=== PATIENT | female | born 1990 | race Hispanic/Latino ===

== ENCOUNTER 2018-04-30 14:37 | Emergency (ER) | payer MEDICAID, SELFPAY ==
[2018-04-30 15:23] LABS: #Eosinphils 0.1 thou/uL (0.0-0.7); #Lymphocytes 2.2 thou/uL (1.20-3.40); #Monocytes 0.5 thou/uL (0.11-0.59); #Neutrophils 5.7 thou/uL (1.40-6.50); %Basophils 0.5 % (0.0-1.0); %Eosinophils 1.5 % (0.0-10.0); %Lymphocytes 25.7 % (21.0-51.0); %Monocytes 5.9 % (0.0-10.0); %Neutrophils 66.3 % (42.0-75.0); Hemoglobin 11.5 g/dL (12.0-16.0); Mean Corpuscular HGB CONC 34.6 g/dL (32.0-36.0); Mean Corpuscular Hemoglobin 28.5 pg (27.0-31.0); Mean Corpuscular Volume 82.4 fL (78.0-98.0); Mean Platelet Volume 7.4 fL (7.4-10.4); Platelet Count 267 thou/uL (130-400); RBC Distribution Width 14.6 % (11.5-14.5); Red Blood Cell (RBC) Count 4.03 mill/uL (4.20-5.40); White Blood Cell (WBC) Count 8.6 thou/uL (4.8-10.8)
[2018-04-30 15:25] LABS: Bilirubin Negative (Negative); Blood, Urine Negative (Negative); Clarity CLEAR (Clear); Glucose, Urine (Dipstick) Negative (Negative); Leukocyte Trace (Negative); Nitrite Negative (Negative); Protein, Urine (Dipstick) Negative (Neg-Trace); Specific Gravity, Urine 1.006 (1.002-1.036); Urobilinogen 0.2 mg/dL (0.2-1.0); pH, Urine 5.5 (5.0-9.0)
[2018-04-30 15:27] LABS: Bacteria/HPF None Seen HPF (None Seen); Hyaline Casts/LPF 0-3 HYALINE CAST LPF (0-3 Hyaline); Pathc Cast-AUWi Flag 0.14 (0-2.49); RBC/HPF 0-3 HPF (0-3); Squamous Epithelial 0-3 HPF (0-3); WBC/HPF 0-3 HPF (0-3)
[2018-04-30] MEDS ORDERED: cefTRIAXone\\ROCEPHIN 250 MG VIAL ONE (17:09)
[2018-04-30] MEDS ORDERED: Azithromycin 250 MG TAB ONE (17:09)
[2018-04-30] MEDS ORDERED: Lidocaine 1% PF 5 ML VIAL ONE (17:09)
[2018-05-03 01:19] LABS: Chlamydia by PCR Not Detected (NotDetected); GC by PCR Not Detected (NotDetected)
== END 2018-04-30 18:34 | disposition home or self-care (01) ==
LOC: ERS 14:37
DX: O26.851 Spotting complicating pregnancy, first trimester (principal); O23.591 Infection of other part of genital tract in pregnancy, first trimester; O24.419 Gestational diabetes mellitus in pregnancy, unspecified control; Z3A.14 14 weeks gestation of pregnancy
CPT/HCPCS: 36415; 81003; 81015; 84702; 85025; 86900; 86901; 87480; 87491; 87510; 87591; 87660; 96372; J0696; J2001

== ENCOUNTER 2018-10-25 16:48 | Day surgery (SDC) | payer OTHER ==
--- NOTE | 2018-10-25 17:28 | PDOC.FPROB ---
FMR OB H&P: HPI - History of Present Illness Chief Complaint: Headache, LE edema History of Present Illness: 28 yo at 38.0w by 10.0w sono here with cc of headache, LE edema and shortness of breath since this morning. She states the edema seemed worse than yesterday this morning in her feet. She also wasn't feeling baby move as much this morning but is feeling her move a lot this afternoon. Headache started around 3pm and she has not tried anything for pain relief. Tolerating PO but feels a little nauseous at the moment. Denies VB, LOF, ctx. Denies vomiting or diarrhea. Primary Care Physician: Latasha Espinal MD, PGY-3 FMR OB H&P: Current - Care : 4 Para: 2011 Gestational age: 38.0 Due date: 11/08/2018 Dating Criteria: 10.0w sono Course/Complications: A1GDM - OB Labs Blood type: O RH: positive Antibody Screen: negative HIV: negative RPR: negative HepBsAg: negative Rubella: immune Gonorrhea: negative Chlamydia: negative Pap Smear: NILM 1 hour gtt: elevated 3 hour GTT: elevated GBS: negative - First Trimester Ultrasound First trimester: 10.0w - Anatomy Survey Anatomy survey: Female fetus Normal per MFM report FMR OB H&P: History - Past Medical History PMH: A1GDM GERD - OB History OB History: 1 SAB with D&C in [facility] - Surgical History Sx History: D&C - Social History Social History: Denies t/a/d FMR OB H&P: Medications - Current Home Medications: Medication Instructions Recorded Confirmed Type Vit No.130/Iron/Folic 1 each PO DAILY 06/12/16 06/12/16 History [ Tablet] Acetaminophen [Tylenol Extra 1,000 mg PO Q4H PRN #30 tab 06/15/16 Rx Strength] Ferrous Sulfate [Feosol] 325 mg PO BID-WM tab 06/15/16 Rx Allergies/Adverse Reactions: Allergies Allergy/AdvReac Type Severity Reaction Status Date / Time No Known Allergies Allergy Verified 06/12/16 17:59 FMR OB H&P: ROS - Review of Systems General: reports: fatigue. denies: fever/chills Eyes: denies: vision changes, scotomas ENT: denies: rhinorrhea, sore throat Cardiovascular: denies: chest pain, palpitation Respiratory: reports: shortness of breath. denies: cough Gastrointestinal: reports: nausea. denies: abdominal pain, vomiting Genitourinary (Female): denies: dysuria, hematuria, vaginal discharge Musculoskeletal: reports: swelling. denies: pain Neurologic: reports: headache. denies: numbness, syncope Integumentary: denies: rash, lesions FMR OB H&P: Vital Signs - Maternal Vital signs: pending FMR OB H&P: Physical Exam - Physical Exam General: NAD, awake, alert and oriented HEENT: MMM, conjunctiva clear Neck: supple, trachea midline Breast: symmetric, non-tender Heart: RRR, normal S1/S2 General: CTAB, no respiratory distress Abdomen: soft, gravid Musculoskeletal: pulses present, other (trace edema BL LE) Skin: capillary refill <2 seconds Lymphatic: no unusual bruising or bleeding Psychiatric: good judgement and insight, normal mood and affect - Pelvic Exam Vulva: normal hair distribution SVE: 0/th/high Presentation: vertex Estimated Weight: 7 lbs FMR OB H&P: A/P - Problem List (1) Gestational diabetes Current Visit: No Status: Acute Code(s): O24.419 - GESTATIONAL DIABETES MELLITUS IN , UNSP CONTROL Qualifiers: Gestational diabetes mellitus control: diet-controlled Comment: - Glucose 79 at most, always in the 70's (2) Term Current Visit: No Status: Acute Code(s): Z34.80 - [facility]NCOUN[facility] OF NORMAL , UNSP TRIMESTER Comment: - Vaginal delivery - Pt had no bleeding today. No BM yet. Disposition: 28 yo at 38.0w by 10.0w sono here with headache and LE edema 1. Headache - Initial BP WNL, will continue to monitor - Tylenol and PO hydration - Will discuss elective induction at 39w if not indicated sooner 2. Peripheral edema - BP WNL, monitor - Trace protein on UA at clinic yesterday 3. A1GDM - Well controlled on diet - Reports fasting 100 today and postprandial 120 - Continue 2 accuchecks daily - F/u early next week in clinic Will monitor BP and FHTs. Re-eval in 1 hour. Discussion: Date/Time: 10/25/18 5341 This H&P was discussed with Dr. Oliver who agrees with A/P
[2018-10-25] MEDS ORDERED: Acetaminophen 500 MG TAB PO SCH (17:45)
[2018-10-25 18:06] VITALS: BMI 25.6
== END 2018-10-25 19:26 | disposition home or self-care (01) ==
LOC: L&D/OP 16:48
PROVIDERS: ATTEND Obstetrics & Gynecology
DX: O99.89 Other specified diseases and conditions complicating pregnancy, childbirth and the puerperium (principal); R51 Headache; R60.0 Localized edema; R06.02 Shortness of breath; O24.410 Gestational diabetes mellitus in pregnancy, diet controlled; Z3A.38 38 weeks gestation of pregnancy
CPT/HCPCS: 81003; 99283

== ENCOUNTER 2018-10-29 11:50 | Inpatient (IN) | payer MEDICAID, OTHER, SELFPAY ==
[~2018-10-29 11:50] MED LIST: Bupivacaine 0.25% HCL 30 ML VIAL ONE
--- NOTE | 2018-10-29 12:03 | PDOC.FPROB ---
FMR OB H&P: HPI - History of Present Illness Chief Complaint: elevated BPs Indentification: History of Present Illness: 28 yo at 38.4 by 10.0wk pamella sent from clinic for elevated blood pressures. Per report she had two elevated BPs at 152/93 with repeat in 140s/ 90s. She was seen Sunday here for elevated BPs and headache. Headache resolved with tylenol, BPs were wnl and urine negative for protein. Today in clinic she a urine protein dipstick that was 2+. Today she denies JUARES, vision changes, chest pain, problems breathing. Does report worsening of lower extremity edema this past week. Endorses FM, denies CTX, VB/VD, LOF. Primary Care Physician: Lety FMR OB H&P: Current - Care : 4 Para: 2011 Gestational age: 38.4 Due date: 11/08/18 Dating Criteria: 10.0wksono - OB Labs Blood type: O RH: positive Antibody Screen: negative HIV: negative RPR: negative HepBsAg: negative Rubella: immune Quad screen: negative Gonorrhea: negative Chlamydia: negative Pap Smear: NILM 1 hour gtt: elevated 3 hour GTT: elevated GBS: negative - Anatomy Survey Anatomy survey: Normal fetus, no abnormalities noted FMR OB H&P: History - Past Medical History PMH: A1GDM GERD - OB History OB History: 1 SAB with D&C in [facility] 2 term SVDs - Surgical History Sx History: D&C for SAB - Social History Social History: denies t/e/d FMR OB H&P: Medications - Current Home Medications: Medication Instructions Recorded Confirmed Type Vit No.130/Iron/Folic 1 each PO DAILY 06/12/16 10/29/18 History [ Tablet] Acetaminophen [Tylenol Extra 1,000 mg PO Q4H PRN #30 tab 06/15/16 10/29/18 Rx Strength] Ranitidine HCl 150 mg PO DAILY 10/29/18 10/29/18 History Allergies/Adverse Reactions: Allergies Allergy/AdvReac Type Severity Reaction Status Date / Time No Known Allergies Allergy Verified 10/29/18 12:42 FMR OB H&P: ROS - Review of Systems General: denies: fever/chills, weight/appetite/sleep changes Eyes: denies: vision changes, double vision ENT: denies: nasal congestion, rhinorrhea Cardiovascular: reports: edema. denies: chest pain Respiratory: denies: cough, congestion, shortness of breath Gastrointestinal: reports: indigestion. denies: abdominal pain, nausea, vomiting Genitourinary (Female): denies: dysuria, hematuria, vaginal discharge, vaginal pain, vaginal bleeding, contractions, vaginal pressure Neurologic: denies: seizures, headache Endocrine: denies: polydipsia, polyuria FMR OB H&P: Vital Signs - Maternal Vital signs: BP <140/<90 - Heart Tones Baseline: 150 Variability: moderate Acceleration: present Deceleration: absent FMR OB H&P: Physical Exam - Physical Exam General: NAD, awake, alert and oriented HEENT: normocephalic and atraumatic, PERRLA, EOMI, MMM, conjunctiva clear Neck: supple Heart: RRR, normal S1/S2, no murmurs/rubs/gallops General: CTAB, no respiratory distress, good air movement Abdomen: soft, gravid, fundus(cm) Neurological: sensation to pain,touch and proprioception grossly normal, DTR +3 Psychiatric: intact recent and remote memory, good judgement and insight FMR OB H&P: A/P - Problem List (1) Elevated blood pressure affecting in third trimester, antepartum Current Visit: Yes Status: Acute Code(s): O16.3 - UNSPECIFIED MATERNAL HYPERTENSION, THIRD TRIMESTER (2) Gestational diabetes Current Visit: No Status: Acute Code(s): O24.419 - GESTATIONAL DIABETES MELLITUS IN , UNSP CONTROL Qualifiers: Gestational diabetes mellitus control: diet-controlled Comment: - Glucose 79 at most, always in the 70's (3) Term Current Visit: No Status: Acute Code(s): Z34.80 - ENCOUNTER FOR [facility] OF NORMAL , UNSP TRIMESTER Comment: - Vaginal delivery - Pt had no bleeding today. No BM yet. Disposition: Elevated BPs in clinic, concern for PreE -Clinic BPs 150/90s with 2+ urine dipstick -Thus far BPs have been within normal limits <140/<90 -Patient exam pertinent for 1+ BLE edema, brisk reflexes 3+. In light of elevated clinical pressures & proteinuria there is concern for preE, will work up to rule out with H/H, CMP, ur/pr ratio -Monitor BPs Term, sIUP -FHT: Cat I -Denies CTX -Up to date on labs -GBS negative A1GDM -well controlled on diet -home glucose <90 and <120, fasting & 2hr PP respectively -continue monitoring Anemia of -10.3 on 3T labs -home iron GERD -home ranitidine History of SAB s/p D&C -placenta anterior History of LGA fetus -EFW at 32.4 wks with 2430g (90.3%) with NARA 18.66cm -Repeat growht U/S 11/05 -Will repeat here if induced for labor Dispo: Clinical course pending labs Discussion: Date/Time: 10/29/18 1200 This H&P was discussed with [] and [] who agree with the above documentation and plan. Addendum - Attending - Attending Attestation Date/Time: 10/29/18 1531 I personally evaluated the patient and discussed the management with Dr. Garcia. I agree with the History, Examination, Assessment and Plan documented above with any addition or exceptions noted below.
[2018-10-29 12:48] VITALS: BMI 30.2
[2018-10-29 13:21] LABS: Hemoglobin 9.8 g/dL (12.0-16.0); Mean Corpuscular HGB CONC 32.8 g/dL (32.0-36.0); Mean Corpuscular Hemoglobin 24.5 pg (27.0-31.0); Mean Corpuscular Volume 74.5 fL (78.0-98.0); Platelet Count 189 thou/uL (130-400); RBC Distribution Width 14.7 % (11.5-14.5); Red Blood Cell (RBC) Count 3.99 mill/uL (4.20-5.40); White Blood Cell (WBC) Count 7.7 thou/uL (4.8-10.8)
[2018-10-29 13:46] LABS: ALT (SGPT) 13 U/L (8-55); AST (SGOT) 21 U/L (5-34); Albumin 2.9 g/dL (3.5-5.0); Alkaline Phosphatase 410 U/L (40-150); Anion Gap 13 mmol/L (10-20); BUN (Urea Nitrogen) 8 mg/dL (7.0-18.7); Bilirubin, Total 0.2 mg/dL (0.2-1.2); Calc. Creatinine Clearance 138 mL/min (70-130); Calcium 8.6 mg/dL (7.8-10.44); Carbon Dioxide 19 mmol/L (22-29); Chloride 109 mmol/L (98-107); Estimated GFR-MDRD Greater than 90; Globulin 4.1 g/dL (2.4-3.5); Glucose 74 mg/dL (70-105); Sodium 137 mmol/L (136-145)
[2018-10-29 14:02] LABS: Creatinine, Urine 156.01 mg/dL (47-110)
[2018-10-29] MEDS ORDERED: Lidocaine 1% (PF) 30 ML VIAL SC PRN (14:52)
[2018-10-29] MEDS: Lactated Ringer's 1,000 ML IV SCH ×2 (14:58→21:28)
[2018-10-29] MEDS ORDERED: Calcium Gluc 4.6 MEQ/10 ML (100 MG/ML) SLOW IVP PRN (15:00)
[2018-10-29] MEDS ORDERED: Misoprostol 100 MCG TAB VAG SCH (15:00)
--- NOTE | 2018-10-29 15:23 | PDOC.EVN ---
Event Note - Event Note Event Note: Labs returned with urine Pr/Cr ratio 0.8. Anemia with Hb of 9.8. BP monitors showed one elevated SBP 142. SVE: 07/24/-3, avila 3. Discussed patient reason to admit for induction of labor due to dx of preEclampsia with elevated BPs in clinic and once here. Discussed plan with patient who agrees. Answered all questions. Ultrasound showed grossly normal NARA with baby cephalic, OP. 1. PreEclampsia, sIUP, term -BP monitoring -cytotec induction -aivla 3 -FHT: Cat I, periodic CTX (pt denies feeling) 2. A1GDM -accuchecks q4hr can adjust as needed -goal glucose of 80-120 to prevent hypoglycemia Addendum - Attending - Attending Attestation Date/Time: 10/29/18 1240 I personally evaluated the patient and discussed the management with Dr. Garcia. I agree with the History, Examination, Assessment and Plan documented above with any addition or exceptions noted below. Elevated pressures sep by 4 hours. +p/c. Plan for induction.
[2018-10-29] MEDS ORDERED: Fentanyl 4 mcg/Bup 0.1% Cadd 100 ML ONE (19:43)
--- NOTE | 2018-10-29 20:20 | PDOC.LDPN ---
Labor & Delivery Progress Note - Subjective Subjective: comfortable, painful contractions - Objective Vital signs reviewed and normal: yes General: NAD, breathing through contractions Uterine fundus: non tender SVE: 50/-3 Dilation: 5 Effacement: 50% Station: -3 FHT: category 1 (Baseline 140s, no decels, accels present), variability present (moderate) [place] contractions every: 2-4 minutes -: 1. PreEclampsia, sIUP, term -BP monitoring -cytotec induction -Last check at 1919 was /-3 -Will check in 2 hours -FHT: Cat I, periodic CTX (pt denies feeling) -BP range systolic 134-161 (only one time above 160), diastolic range 73-91 -No headaches, chest pain, SOB, or changes in vision 2. A1GDM -accuchecks q4hr can adjust as needed -goal glucose of 80-120 to prevent hypoglycemia
[2018-10-29] MEDS ORDERED: ePHEDrine/0.9% NaCl/PF SYRINGE 50 mg/10 ml SLOW IVP PRN (21:28)
[2018-10-29] MEDS ORDERED: Naloxone HCl 0.4 mg/ml Vial IVP PRN ×2 (21:28)
[2018-10-29] MEDS ORDERED: Lactated Ringer's 500 ML IV PRN (21:28)
[2018-10-29] MEDS ORDERED: Promethazine HCl 25 MG/ML VIAL IM PRN (21:28)
[2018-10-29] MEDS ORDERED: diphenhydrAMINE 50 MG/ML VIAL IVP PRN (21:28)
[2018-10-29] MEDS ORDERED: Ondansetron PF 4 MG/2 ML Vial IVP PRN (21:28)
[2018-10-29] MEDS ORDERED: Acetaminophen 325 MG TAB PO PRN (21:28)
[2018-10-29] MEDS ORDERED: Fentanyl 4 mcg/Bupivacaine 0.1% Cassette 100 ML EPIDURAL SCH (21:30)
[2018-10-29] MEDS ORDERED: Communication Order-Pharmacy FS SCH (21:30)
[2018-10-29] MEDS: NS / Oxytocin 40 units/1000ml 1,000 ML IV PRN (22:52)
[2018-10-29] MEDS ORDERED: Misoprostol 200 MCG TAB ONE (23:00)
--- NOTE | 2018-10-29 23:28 | PDOC.OPDEL ---
OB Operative/Delivery Note Delivery Dr/Surgeon: Cyrus Gallegos DO, PGY-1 Supervising Resident: Latasha Espinal MD, PGY-3 Assist: Attending: Jv Hernandez MD Pre-Delivery Diagnosis: active labor, medically indicated induction Procedure/Post Delivery Dx: spontaneous vaginal delivery Weeks gestation: 38 (38.4) Anesthesia: epidural - Findings A Sex: female - 1 min: 9 - 5 min: 9 - Additional Findings/Plan Placenta delivered: spontaneous Repaired Obstetrical Laceration: none Estimated blood loss: QBL 135 mL Compilations/Other Findings: PRICILLA presentation Hemostatic first degree perineal laceration Body cord over R shoulder - delivered through Mild uterine atony - 800 mcg cytotec administered ME Post delivery plan: routine recovery Addendum - Attending - Attending Attestation Date/Time: 10/29/18 3596 I personally attended, supervised and assisted with the . See residents note for details. Patient progressed to complete dilation and effacement. with pushing delivered a live, vigorous, female infant over intact perineum via . Pitocin IV infusion initiated. Cord was clamped and cut. bulb suction of the nose and mouth performed and was dried and placed on mother's chest for skin to skin bonding. Placenta delivered intact spontaneously. Fundal massage employed. Uterine atony encountered. Bimanual massage resulted in uterine firming. Vagina adn cervix examined. midline 1 degree tear noted. hemostatic. Uterine atony noted again, so cytotec 800mcg pr given, and uterine massage resumed which was shortly effective. Mom and baby were in good condition.
[2018-10-29] MEDS ORDERED: Benzocaine-Menthol 82.5 ML CAN TOP PRN (23:47)
[2018-10-29] MEDS ORDERED: Bisacodyl 10 MG SUPP PR PRN (23:47)
[2018-10-29] MEDS ORDERED: Lanolin Ointment 7 GM TUBE TOP PRN (23:47)
[2018-10-29] MEDS ORDERED: Milk Of Magnesia 30 ML UDCUP PO PRN (23:47)
[2018-10-30] MEDS ORDERED: Calcium Gluc 4.6 MEQ/10 ML (100 MG/ML) SLOW IVP PRN (00:44)
[2018-10-30] MEDS ORDERED: hydrALAZINE 20 MG/ML VIAL SLOW IVP PRN (00:44)
[2018-10-30] MEDS ORDERED: Calcium Gluconate 4.6 MEQ in Sodium Chloride 0.9% 100 ML IVPB PRN (00:44)
[2018-10-30] MEDS ORDERED: hydrALAZINE 20 MG/ML VIAL ONE (00:45)
[2018-10-30] MEDS ORDERED: Magnesium Sulfate 20 GM/WATER 500 ML BAG IVPB SCH (01:00)
[2018-10-30] MEDS: NS / Oxytocin 40 units/1000ml 1,000 ML IV PRN (01:07)
[2018-10-30] MEDS ORDERED: Magnesium Sulfate 20 gm/500 ml 20 GM/500 ML BAG IVPB SCH (01:15)
[2018-10-30] MEDS: Ibuprofen 800 MG TAB PO SCH ×3 (06:41→23:45)
--- NOTE | 2018-10-30 08:23 | PDOC.PP ---
Post Progress Note Post Day #: 1 Subjective: Feeling ok - having some neck pain she's had a couple of weeks and feeling flushed with Mg infusion. Otherwise feeling better after resting last night. PO intake tolerated: yes Flatus: yes Ambulation: no Vital Signs (12 hours) Pulse BP Pulse Ox 10/30/18 07:11 97 10/30/18 00:51 53 L 179/103 H Weight Weight 68.039 kg - Physical Examination General: NAD Cardiovascular: no m/r/g, RRR Respiratory: clear to auscultation bilaterally Abdominal: + bowel sounds, lochia (scant), no distention, appropriately TTP Fundus firm & at: umbilicus Extremities: negative homans (B) Neurological: no gross focal deficits (DTRs 1+ patellar) Psychiatric: A&Ox3, normal affect Result Diagrams: 10/29/18 13:06 10/29/18 13:06 (1) Term of female Code(s): Z37.0 - SINGLE LIVE Status: Acute (2) Pre-eclampsia, severe Code(s): O14.10 - SEVERE PRE-ECLAMPSIA, UNSPECIFIED TRIMESTER Status: Acute - Assessment/Plan 28 yo G4 now P3013 s/p at 2250 on 10/29/18 now with preE with severe features 1. PPD #1 - Meeting pp milestones but not ambulatory 2/2 Mg infusion - Abd pain appropriate 2. PreE now with severe features - Multiple severe range BP overnight - No longer in severe range - Mg infusion started at 0100 10/29 - Continue for 24h - UOP 150-300/hr 3. Neck pain - Will try heating pad and Tylenol - Low suspicion for spinal headache 2/2 pain having been there a couple of weeks Continue Mg. Encouraged - will get pump in the room. Baby in nursery.
[2018-10-30] MEDS ORDERED: Adacel (T-DAP) 0.5 ML SYRINGE IM ONE (09:00)
[2018-10-30] MEDS: Prenatal Vitamin 1 TAB PO SCH (11:26)
[2018-10-30] MEDS: Docusate Calcium (SURFAK) 240 MG CAP PO SCH ×2 (11:26→23:45)
[2018-10-30] MEDS: Ferrous Sulfate 325 MG TAB PO SCH (11:26)
--- NOTE | 2018-10-30 17:20 | PDOC.EVN ---
Event Note - Event Note Event Note: Mg Check S: complaining of worsening blurry vision. no focal visual deficits, no headache. feels L arm is slightly weak, otherwise strength and sensation equivalent BL O: VSS, BP all WNL, UOP > 100/hr Gen: awake, alert, oriented HEENT: NCAT, no conjunctival injection CV: RRR, no murmur RESP: CTAB ABD: nontender, fundus at umbilicus EXT: no edema NEURO: CN intact, vision blurry, strength 5/5 except LUE 4/5, sensation intact, DTR not elicited 28 yo G4 now P3013 s/p at 2250 on 10/29/18 now with preE with severe features PreE now with severe features - Concern for Mg toxicity - Will order stat level and d/c infusion - Re-evaluate shortly - Consider neuro consult and MRI if vision changes or any neuro deficits persistent despite d/c Mg - CT if any headache or focal changes Discussed plan with Dr. Muhammad and night team
--- NOTE | 2018-10-30 20:25 | PDOC.EVN ---
Event Note - Event Note Event Note: 28 yo G4 now P3013 s/p at 2250 on 10/29/18 with preE. Doing well now. States headache and vision changes resolved. Denies any complaints. Feels much better off mag. PE: Bp's 130s/ 60s; one pressure 150s/60s NAD RRR normal S1 and S2 no m/r/g CTAB no w/r/r Patellar reflex intact, strength 5/5 in upper and lower extremities, sensation intact in upper and lower extremities, CN intact, no clonus UOP: 300 over past hour abdomen soft nontender to palpation A/P: #SIUP delivered #PreE, severe features resolved -continue to monitor, but sx of blurry vision and decreased patellar reflex and discrepancy of strenght testing has all resolved -has been on mag since 2250 yesterday, mag was dc'd ~ 2 hours ago and I think at this point it is reasonable to keep the mag off. Kimmie Zelaya MD, PGY-2
--- NOTE | 2018-10-31 06:37 | PDOC.PP ---
Post Progress Note Post Day #: 2 Subjective: Feeling much better since Mg d/c last night. No headache, blurry vision, abdominal pain minimal. a little. PO intake tolerated: yes Flatus: yes Ambulation: no Vital Signs (12 hours) Temp Pulse Resp BP Pulse Ox 10/31/18 06:25 97.9 F 62 16 133/75 98 Weight Weight 68.039 kg - Physical Examination General: NAD Cardiovascular: no m/r/g, RRR Respiratory: clear to auscultation bilaterally, non-labored breathing Abdominal: + bowel sounds, lochia (scant), no distention, appropriately TTP Fundus firm & at: just L of umbilicus Extremities: negative homans (B) Neurological: no gross focal deficits Psychiatric: A&Ox3, normal affect Result Diagrams: 10/29/18 13:06 10/29/18 13:06 (1) Term of female Code(s): Z37.0 - SINGLE LIVE Status: Acute (2) Pre-eclampsia, severe Code(s): O14.10 - SEVERE PRE-ECLAMPSIA, UNSPECIFIED TRIMESTER Status: Acute - Assessment/Plan 28 yo G4 now P3013 s/p at 2250 on 10/29/18. PP course c/b preE with severe features 1. PPD #2 - Meeting pp milestones - PP course c/b preE with severe features - No severe BP > 24 hours 2. PreE now with severe features - Mg infusion d/c'd about 1800 last night 2/2 concern for toxicity - No further severe range BPs or sx - Has had a couple of indeterminate BPs - Continue to monitor Encouraged . Baby in nursery. Possible d/c tomorrow. Addendum - Attending - Attending Attestation Date/Time: 10/31/18 1052 I personally evaluated the patient and discussed the management with Teddy Guzman, and team. I agree with the History, Examination, Assessment and Plan documented above with any addition or exceptions noted below. Doing well, moving all extremities well, no neuro symptoms.
[2018-10-31] MEDS: Ferrous Sulfate 325 MG TAB PO SCH (08:36)
[2018-10-31] MEDS: Prenatal Vitamin 1 TAB PO SCH (08:36)
[2018-10-31] MEDS: Docusate Calcium (SURFAK) 240 MG CAP PO SCH ×2 (08:36→21:12)
[2018-10-31] MEDS: Ibuprofen 800 MG TAB PO SCH ×3 (08:45→21:12)
[2018-11-01] MEDS: Ibuprofen 800 MG TAB PO SCH ×3 (06:03→21:17)
--- NOTE | 2018-11-01 07:03 | PDOC.PP ---
Post Progress Note Post Day #: 3 Subjective: Feeling well. Denies any headache, vision changes. Lochia is minimal. PO intake tolerated: yes Flatus: yes Ambulation: yes Vital Signs (12 hours) Temp Pulse Resp BP Pulse Ox 11/01/18 03:50 98.6 F 68 20 150/82 H 10/31/18 20:50 18 99 10/31/18 20:20 97.7 F 77 18 140/79 99 Weight Weight 68.039 kg - Physical Examination General: NAD Cardiovascular: no m/r/g, RRR Respiratory: clear to auscultation bilaterally Abdominal: lochia (scant), no distention, appropriately TTP Fundus firm & at: umbilicus Extremities: negative homans (B) Neurological: no gross focal deficits Psychiatric: A&Ox3, normal affect Result Diagrams: 10/29/18 13:06 10/29/18 13:06 (1) Term of female Code(s): Z37.0 - SINGLE LIVE Status: Acute (2) Pre-eclampsia, severe Code(s): O14.10 - SEVERE PRE-ECLAMPSIA, UNSPECIFIED TRIMESTER Status: Acute - Assessment/Plan 28 yo G4 now P3013 s/p at 2250 on 10/29/18. PP course c/b preE with severe features 1. PPD #3 - Meeting pp milestones - PP course c/b preE with severe features - No severe BP > 48 hours 2. PreE now with severe features - Mg infusion d/c'd about 1800 10/30 2/2 concern for toxicity - No further severe range BPs or sx - Has had a couple of indeterminate BPs - Continue to monitor Will monitor BPs today with possible d/c later today or tomorrow Addendum - Attending - Attending Attestation Date/Time: 11/01/18 9275 I personally evaluated the patient and discussed the management with Dr. Espinal. I agree with the History, Examination, Assessment and Plan documented above with any addition or exceptions noted below. Another severe range noted. Labetalol started. Likely hold overnight.
[2018-11-01] MEDS: Docusate Calcium (SURFAK) 240 MG CAP PO SCH ×2 (11:15→21:17)
[2018-11-01] MEDS: Prenatal Vitamin 1 TAB PO SCH (11:15)
[2018-11-01] MEDS: Ferrous Sulfate 325 MG TAB PO SCH (11:15)
[2018-11-01] MEDS ORDERED: Labetalol 100 MG TAB PO SCH ×2 (13:30→21:00)
[2018-11-01] MEDS: Labetalol 100 MG TAB PO SCH (21:17)
[2018-11-02] MEDS: Ibuprofen 800 MG TAB PO SCH ×2 (06:40→13:34)
--- NOTE | 2018-11-02 08:02 | PDOC.PP ---
Post Progress Note Post Day #: 4 Subjective: NAEO. Denies JUARES, chest pain ,vision changes. PO intake tolerated: yes Flatus: yes Ambulation: yes Vital Signs (12 hours) Temp Pulse Resp BP 11/02/18 05:30 98.1 F 70 16 135/75 11/02/18 00:20 98.6 F 67 16 135/75 11/01/18 21:17 67 Weight Weight 68.039 kg - Physical Examination General: NAD Cardiovascular: no m/r/g, RRR Respiratory: clear to auscultation bilaterally Psychiatric: A&Ox3, normal affect Result Diagrams: 10/29/18 13:06 10/29/18 13:06 (1) Elevated blood pressure affecting in third trimester, antepartum Code(s): O16.3 - UNSPECIFIED MATERNAL HYPERTENSION, THIRD TRIMESTER Status: Acute (2) Gestational diabetes Code(s): O24.419 - GESTATIONAL DIABETES MELLITUS IN , UNSP CONTROL Status: Acute Qualifiers: Gestational diabetes mellitus control: diet-controlled Comment: - Glucose 79 at most, always in the 70's (3) Term Code(s): Z34.80 - ENCOUNTER FOR SUPRVSN OF NORMAL , UNSP TRIMESTER Status: Acute Comment: - Vaginal delivery - Pt had no bleeding today. No BM yet. - Assessment/Plan 28 yo G4 now P3013 s/p at 2250 on 10/29/18. PP course c/b preE with severe features 1. PPD #4 - Meeting pp milestones - PP course c/b preE with severe features - No severe BP >12 hours, on labetalol 200mg BID, will send home w/ rx for this 2. PreE now with severe features - Mg infusion d/c'd about 1800 10/30 2/2 concern for toxicity Likely d/c today Addendum - Attending - Attending Attestation Date/Time: 11/02/18 1306 I personally evaluated the patient and discussed the management with Dr. Garcia. I agree with the History, Examination, Assessment and Plan documented above with any addition or exceptions noted below. No severe symptoms. BP's generally improved. No severe ranges. I feel safe for discharge. Return warnings discussed. BP check next week.
[2018-11-02] MEDS: Ferrous Sulfate 325 MG TAB PO SCH (09:03)
[2018-11-02] MEDS: Docusate Calcium (SURFAK) 240 MG CAP PO SCH (09:04)
[2018-11-02] MEDS: Labetalol 100 MG TAB PO SCH (09:04)
[2018-11-02] MEDS: Prenatal Vitamin 1 TAB PO SCH (09:04)
[2018-11-02 12:50] VITALS: BP 130/69; TEMP 98.3
== END 2018-11-02 17:02 | disposition home or self-care (01) | DRG 807 ==
LOC: L&D/OP 11:50 → L&D 14:24 → 3SE 10-31 06:30
PROVIDERS: ADMIT Emergency Medicine; ATTEND Emergency Medicine
PROC: 10907ZC Drainage of Amniotic Fluid, Therapeutic from Products of Conception, Via Natural or Artificial Opening (ICD-10-PCS; principal; 2018-10-29)
PROC: 10E0XZZ Delivery of Products of Conception, External Approach (ICD-10-PCS; 2018-10-29)
PROC: 3E0P7VZ Introduction of Hormone into Female Reproductive, Via Natural or Artificial Opening (ICD-10-PCS; 2018-10-29)
PROC: 3E033VJ Introduction of Other Hormone into Peripheral Vein, Percutaneous Approach (ICD-10-PCS; 2018-10-29)
DX: O14.14 Severe pre-eclampsia complicating childbirth (principal); Z37.0 Single live birth; Z3A.38 38 weeks gestation of pregnancy; O99.62 Diseases of the digestive system complicating childbirth; O24.420 Gestational diabetes mellitus in childbirth, diet controlled; O99.02 Anemia complicating childbirth; D64.9 Anemia, unspecified; O70.0 First degree perineal laceration during delivery; K21.9 Gastro-esophageal reflux disease without esophagitis
CPT/HCPCS: 36415; 36416; 80053; 82570; 83735; 84156; 85027; J0360; J3475; S0020